=== PATIENT | male | born 1990 | race Caucasian/White ===

== ENCOUNTER 2024-01-19 19:02 | Outpatient (CLI) | payer OTHER ==
--- NOTE | 2024-01-20 12:13 | XRAY Report ---
PROCEDURE: Ribs 2V LT INDICATIONS: RIB PAIN, LEFT SIDED TECHNIQUE: 2 views of the ribs were acquired. COMPARISON: None. FINDINGS: Bones and chest wall: No fractures or dislocations. No suspicious bony lesions. Overlying soft tis sues appear unremarkable. Lungs and pleura: The visualized lung appears clear. No pleural effusions or pneumothorax are visib le. IMPRESSION: No displaced fracture or pneumothorax. Reviewed by: Jake iAken MD on 01/20/2024 12:12 PM PDT Approved by: Jake Aiken MD on 01/20/2024 12:12 PM PDT Station ID: [id number]
== END 2024-01-19 19:03 | disposition home or self-care (01) ==
LOC: DI 19:02
PROVIDERS: ATTEND Physician Assistant Medical
DX: R07.81 Pleurodynia (principal)